=== PATIENT | male | born 1995 | race Two or more races ===

== ENCOUNTER 2019-11-06 22:05 | Emergency (ER) | payer BC ==
[~2019-11-06] VITALS: Ht 170.2 cm; Wt 59.0 kg
[2019-11-06] MEDS ORDERED: ACETAMINOPHEN 500 MG TABLET PO ONE (22:30)
--- NOTE | 2019-11-06 22:31 | PHYS DOC ---
General Adult EDM: Chief Complaint: FEVER HPI: HPI: Patient is a 24 year old male who presents with complaint of fever and sore throat for the last couple of days. Patient states that he has been exposed to COVID-19 at work. Patient denies any shortness of breath. He denies any vomiting or diarrhea. Patient states that he is just not feeling very well. [] Review of Systems: Review of Systems: Constitutional: Positive fever and chills. [] Respiratory: Denies cough or shortness of breath. [] Cardiovascular: Denies chest pain or edema. [] GI: Denies abdominal pain, nausea, vomiting, bloody stools or diarrhea. [] Neurologic: Denies headache, focal weakness or sensory changes. [] Heart Score: Risk Factors: Risk Factors: DM, Current or recent (<one month) smoker, HTN, HLP, family history of CAD, obesity. Risk Scores: Score 0 - 3: 2.5% MACE over next 6 weeks - Discharge Home Score 4 - 6: 20.3% MACE over next 6 weeks - Admit for Clinical Observation Score 7 - 10: 72.7% MACE over next 6 weeks - Early Invasive Strategies Physical Exam: PE: Constitutional: Well developed, well nourished, no acute distress, non-toxic appearance. [] HENT: Normocephalic, atraumatic, bilateral external ears normal, pharyngeal erythema without exudates is noted. [] Cardiovascular: Regular rate and rhythm [] Lungs & Thorax: Bilateral breath sounds clear to auscultation [] Skin: Warm, dry, no erythema, no rash. [] EKG: EKG: [] Radiology/Procedures: Radiology/Procedures: [] Course & Med Decision Making: Course & Med Decision Making Pertinent Labs and Imaging studies reviewed. (See chart for details) [] Dragon Disclaimer: Dragon Disclaimer: This electronic medical record was generated, in whole or in part, using a voice recognition dictation system. Departure Departure Impression: Primary Impression: Viral syndrome Disposition: HOME, SELF-CARE Condition: STABLE Referrals: NO PCP (PCP) Patient Instructions: Fever, Adult, Viral Syndrome ESAU CARMONA Jr. DO Nov 06, 2019 22:31
[2019-11-06 22:56] VITALS: BP 134/75
== END 2019-11-06 22:56 | disposition home or self-care (01) ==
LOC: ER 22:05
DX: B34.9 Viral infection, unspecified (principal)
CPT/HCPCS: 99282